=== PATIENT | female | born 1960 | race Caucasian/White ===

== ENCOUNTER 2016-11-13 16:40 | Inpatient (IN) | payer OTHER ==
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
--- NOTE | ~2016-11-13 | DS ---
Discharge Summary [facility] [address] [place]. [address] NAME: DWAYNE ALTAMIRANO : 60 STATUS : DIS IN PAT#: [id number] AGE: 56 ADM/REG DATE : 11/13/16 MR#: [id number] REPORT SERV DATE: 11/17/16 DICTATED BY: BHARAT GARRETT DATE: 11/16/16 REPORT STATUS : Draft TRANSCRIBED BY: MODL DATE: 11/16/16 ADMISSION DATE: 11/13/2016 DISCHARGE DATE: 11/16/2016 DISCHARGE DIAGNOSES: 1. Acute encephalopathy, metabolic, with some ataxia that has resolved. 2. Anxiety, depression, and post-traumatic stress disorder. 3. Positive withdrawal from benzodiazepines and opiates. 4. History of chronic pain syndrome. 5. History of pulmonary embolus and deep venous thrombosis, on chronic anticoagulation with Xarelto. 6. Tobacco abuse. 7. Dental caries. 8. Obstructive/sleep apnea but not wearing CPAP. DISCHARGE MEDICATIONS: As follows: Aspirin 81 mg daily, Mobic 15 mg daily p.r.n. for pain, Restasis ophthalmic drops twice a day to both eyes, vitamin D 50,000 units three times a week, Flonase nasal spray twice a day, folic acid 1 mg daily, gabapentin 800 mg three times a day, Imdur 30 mg daily, Synthroid 50 mcg daily, Thea 180 mg daily, magnesium oxide 400 mg three times a day, MS Contin 15 mg p.o. twice a day, morphine immediate release 15 mg daily p.r.n. for breakthrough pain, prescriptions were written for these. Metoprolol 25 mg twice a day, Nystatin powder topically twice a day, Protonix 40 mg twice a day, Pravachol 40 mg daily, nicotine patch 14 mg daily, Xarelto 20 mg daily, vitamin B12 1000 mcg every seven days, Spiriva Respimat two puffs inhaled daily, Symbicort 160/4.5 two puffs inhaled twice a day, ProAir inhaler every four hours p.r.n. for shortness of breath, nitroglycerin p.r.n. for chest pain, MiraLAX one packet daily p.r.n., Zofran 4 mg every six hours p.r.n. for nausea and vomiting, doxepin 50 mg at bedtime, Glucophage 500 mg twice a day, Phenergan 25 mg every six hours p.r.n. for nausea, Colace 200 mg every eight hours p.r.n. for constipation, and Klonopin 1 mg twice a day p.r.n. for anxiety. HISTORY OF PRESENT ILLNESS: This is an unfortunate 56-year-old white female who presented with altered mental status and confusion. Please see initial H and P of Dr. Red Lloyd as the patient was admitted to the Hospitalist Service for further evaluation and treatment. CONSULTANTS DURING THIS ADMISSION: 1. Neurology, Nikky Zaragoza, nurse practitioner. 2. Ashish Leach MD. 3. Psychiatry, Malik Valdes M.D. PROCEDURES AND IMAGING DURING THIS ADMISSION: Included an initial CT of the brain that showed no evidence of acute intracranial pathology. An MRI of the brain that showed some very mild deep white matter chronic microvascular ischemic changes but no acute CVA or other intracranial pathology and unremarkable intracranial MRA as well of the head and also unremarkable MRA of the carotid arteries. No significant plaque or stenosis. An echocardiogram showing an ejection fraction of 60%, some mild left ventricular diastolic dysfunction, but otherwise, no significant valvular dysfunction was noted. Discharge Summary [facility] [address] [place]. [address] NAME: DWAYNE ALTAMIRANO : 60 STATUS : DIS IN PAT#: [id number] AGE: 56 ADM/REG DATE : 11/13/16 MR#: [id number] REPORT SERV DATE: 11/17/16 DICTATED BY: BHARAT GARRETT DATE: 11/16/16 REPORT STATUS : Draft TRANSCRIBED BY: JUAN DATE: 11/16/16 HOSPITAL COURSE: I began seeing the patient on 11/14/2016 where she was very drowsy but was becoming more alert and able to answer some questions but was extremely poor historian and was still somewhat dysarthric, and in discussion with Neurology, it was determined to obtain the above-described MRIs, echocardiogram, and PT and OT and speech evaluation as there was some concern for acute stroke. However, as described above, she did not have an acute stroke. Her mental status began to improve slowly each day. As more information was able to be obtained from her family and from her, it became clear that she had been somewhat inconsistent with medication usage and was suffering symptoms of withdrawal from likely benzodiazepines and also probable opiates. She became quite tremorous, and once the patient was given benzodiazepines, these withdrawal symptoms and tremors activity began to resolve itself. She was also given nicotine patch for her history of tobacco use. Mental status did resolve to baseline according to family members, and it was felt that her delirium and encephalopathy were primarily medication-related. After a lengthy discussion with the patient, I have counseled her on the need for continued weaning of her opiates and benzodiazepines as she was on tremendous amounts of both of these medicines, and she will also need prompt followup with her primary care within a week and needs to establish with an outpatient psychiatrist also. She was able to be mobilized with physical therapy. They initially recommended long term facility at discharge, but this was unable to be accomplished via the patient's current insurance. She will have home health, however, with nursing and physical therapy through [facility] at discharge. So, the patient was felt safe for discharge home on 11/16/2016 with the above medicines and followup plan, and the patient was in agreement with this plan going forward. Questions were answered at bedside. Please note, greater than 30 minutes were spent on this discharge for medication teaching, followup planning, and further disposition. MICHAEL/MODL Bharat Garrett NP / [id number] CC: Fabby Alcaraz M.D.
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
--- NOTE | ~2016-11-13 | HP ---
History And Physical [place] [id number] [place]. [address] NAME: DWAYNE NAJERA : 60 STATUS : ADM Tiffany PAT#: [id number] AGE: 56 ADM/REG DATE : 11/13/16 MR#: [id number] REPORT SERV DATE: 11/14/16 DICTATED BY: NO MARSHALL DATE: 11/13/16 REPORT STATUS : Draft TRANSCRIBED BY: MODAida DATE: 11/13/16 DATE OF ADMISSION: 11/13/2016 POINT OF ENTRY: [facility] Emergency Department. CHIEF COMPLAINT: Altered mental status and confusion x1 week. HISTORY OF PRESENT ILLNESS: Ms. Najera is a 56-year-old female with a history of non-insulin dependent diabetes mellitus type 2, hypothyroidism, coronary artery disease, chronic pain on multiple chronic narcotics and sedating medications as well as anxiety and depression, who presents to the emergency department today with a one-week history of disorientation and confusion and altered mental status. History is obtained from the patient's son who is at bedside as the patient is altered and unable to provide any history. Son states that for the past week the patient has been very disoriented and confused. She has had some slurred speech. She has been acting inappropriately sometimes responding and speaking inappropriately or not making sense. He also notes that she has not slept for the past few days. She has been up in her chair in the living room wide awake. He does feel as if she has been responding to external visual and auditory stimuli. She is also weak and having trouble walking which she describes mainly with troubles with equilibrium and being unsteady on her feet. She is on multiple sedating medications and narcotics which she is responsive for managing herself. She was seen at [facility] Emergency Department for similar complaints yesterday, of urinary tract infection but no formal neurologic evaluation was undertaken. Initial evaluation in the emergency department notable for a urine drug screen positive for opiates. Remainder of her labs otherwise unremarkable. Urinalysis was negative for UTI. CT scan of the brain was unremarkable. Ammonia level was negative. The patient was subsequently admitted to the Hospitalist Service for further evaluation and management of concern for possible TIA versus stroke. REVIEW OF SYSTEMS: Comprehensive review of systems otherwise negative unless listed in history of present illness. PREVIOUS MEDICAL HISTORY: 1. History of PE, on Coumadin. 2. Wtk-nyhgkiv-gwnsvdlan diabetes mellitus type 2. 3. Hypothyroidism. 4. Coronary artery disease with prior PCI. 5. Chronic pain on multiple chronic narcotics and sedating medications. 6. Hypertension. 7. Hyperlipidemia. 8. Anxiety. 9. Depression. History And Physical [address] [address] NAME: DWAYNE NAJERA : 60 STATUS : ADM Tiffany PAT#: [id number] AGE: 56 ADM/REG DATE : 11/13/16 MR#: [id number] REPORT SERV DATE: 11/14/16 DICTATED BY: NO MARSHALL DATE: 11/13/16 REPORT STATUS : Draft TRANSCRIBED BY: JUAN DATE: 11/13/16 10.Obstructive sleep apnea. 11.Peripheral neuropathy. 12.Asthma or COPD. 13.Morbid obesity. SURGICAL HISTORY: 1. PCI. 2. Cholecystectomy. 3. Uterine ablation. ALLERGIES: 1. PENICILLIN. 2. SULFA. 3. CODEINE. 4. HYDROCODONE. 5. OXYCODONE. 6. ACETAMINOPHEN. 7. ERYTHROMYCIN. 8. AUGMENTIN. 9. CIPROFLOXACIN. 10.BIAXIN. 11.LEVAQUIN. HOME MEDICATIONS: 1. Albuterol one puff inhalation q.4 hours p.r.n. 2. Aspirin 81 mg daily. 3. Symbicort two puff inhalation b.i.d. 4. Ceftin 500 mg b.i.d. 5. Vitamin B12 of 1000 mcg weekly. 6. Cyclosporine eyedrops one drop b.i.d. 7. Topicort cream. 8. Sinequan 50 mg [place] [address] units 3 times weekly. 10.Thea 180 mg daily. 11.Flonase one spray nasal b.i.d. 12.Advair Diskus one puff inhalation b.i.d. 13.Folic acid 1 mg daily. 14.Neurontin 800 mg t.i.d. 15.Imdur 30 mg daily. 16.Levothyroxine 50 mcg daily. 17.Ativan 2 mg t.i.d. p.r.n. 18.Magnesium oxide 400 mg t.i.d. 19.Metformin 5 mg b.i.d. 20.Lopressor 25 mg b.i.d. 21.MS Contin 30 mg b.i.d. p.r.n. 22.Morphine immediate release 15 mg b.i.d. p.r.n. 23.Nitroglycerin 0.5 inch topical p.r.n. History And Physical [address] [address] NAME: DWAYNE NAJERA : 60 STATUS : ADM Tiffany PAT#: [id number] AGE: 56 ADM/REG DATE : 11/13/16 MR#: [id number] REPORT SERV DATE: 11/14/16 DICTATED BY: NO MARSHALL DATE: 11/13/16 REPORT STATUS : Draft TRANSCRIBED BY: JUAN DATE: 11/13/16 24.Nystatin topical cream b.i.d. 25.Zofran 4 mg q.6 hours. 26.Protonix 40 mg b.i.d. 27.MiraLAX one packet daily. 28.Pravastatin 40 mg at bedtime. 29.Spiriva two puffs inhalation daily. 30.Blood thinner, unknown name, but presumed to be Coumadin. SOCIAL HISTORY: Denies any tobacco, alcohol, or illicits. FAMILY MEDICAL HISTORY: Notable for coronary artery disease, bipolar disease, and schizophrenia as well as cancer. LABS AND IMAGIN. White count is 5.0, hemoglobin is 15.3, hematocrit 43.8, and platelets 207. 2. Sodium is 141, potassium 3.2, chloride 103 carbon dioxide 31, BUN 10, creatinine 0.74, glucose 94, calcium is 8.6, protein 7.2, albumin 3.8, bilirubin is 0.6, ALT is 14, AST 11, alkaline phosphatase is 80. 3. TSH 1.43. 4. Ammonia level is undetectable. 5. BNP is 95. 6. Urinalysis: Specific gravity is 1.024, no evidence of any infection. 7. Urine drug screen is positive for opiates. 8. EKG is a very poor baseline, but otherwise, no evidence of any acute ischemia or infarction. 9. CT scan of brain shows no acute intracranial abnormality. 10.Chest x-ray per my review shows poor inspiration, but otherwise, no acute cardiopulmonary abnormality. PHYSICAL EXAMINATION: VITAL SIGNS: Temperature is 98.7 degrees Fahrenheit, pulse is 62, respirations 18, saturating 98% on room air, and blood pressure 169/94. GENERAL: The patient is awake, alert, in no acute distress. Resting comfortably. She is a morbidly obese, female. Son is at bedside. HEENT: Atraumatic and normocephalic. Moist mucous membranes. Pupils are equal, round, reactive to light and accommodation. Extraocular eye movements are intact. No scleral icterus. NECK: No jugular venous distention. No carotid bruits. CARDIAC: Regular rate and rhythm. No murmurs or gallops. Normal S1, S2. LUNGS: Clear to auscultation bilaterally. No wheezes, rhonchi, or crackles. ABDOMEN: Obese, soft, nontender, nondistended. Good bowel sounds. No rebound, guarding, or rigidity. EXTREMITIES: She has a mild tremor in her bilateral upper extremities but otherwise warm and perfused. No cyanosis, clubbing, or edema. SKIN: Warm and dry. PSYCH: Somewhat anxious and agitated. NEURO: She is alert and oriented to person only. She cannot tell me if she is at a hospital History And Physical [address] [address] NAME: DWAYNE NAJERA : 60 STATUS : ADM Tiffany PAT#: [id number] AGE: 56 ADM/REG DATE : 11/13/16 MR#: [id number] REPORT SERV DATE: 11/14/16 DICTATED BY: NO MARSHALL DATE: 11/13/16 REPORT STATUS : Draft TRANSCRIBED BY: MODL DATE: 11/13/16 but is able to tell me any other orientation questions. She does occasionally answer questions inappropriately, difficult to assess whether or not the patient having receptive and/or expressive aphasia or some kind of hallucinations. She does have some evidence of pressured speech as well as tangential thought. Cranial nerves 2 through 12 are grossly intact. It is difficult to have patient follow all commands well. Strength is intact in bilateral upper and lower extremities. Speech is somewhat garbled as well as possibly some dysarthric. ASSESSMENT: Ms. Najera is a 56-year-old female, presents with a one-week history of reports of disorientation and confusion, concern for possible cerebrovascular accident given concern for dysarthria and aphasia. Other etiologies including medication effect as well as underlying psychiatric disease is also on the differential. PROBLEM LIST: 1. Encephalopathy. 2. Aphasia. 3. Insomnia, agitation, hallucinations concerning for underlying psychiatric disease. 4. Chronic pain on multiple sedating medications and narcotics. 5. Dup-tisyvxp-ftfydcdkd diabetes mellitus type 2. 6. History of PE, on Coumadin. PLAN: 1. Encephalopathy. ER physician was concerned for possible stroke given what he felt to be as aphasia and dysarthria; however, after having obtained additional history from the patient's son, I am more concerned about possible underlying psychiatric disease such as acute psychosis or acute manic episode especially in light of the patient's insomnia, pressured speech, and tangential thought. We will check an MRI/MRA to rule out stroke. Consult Neurology for assistance. Hold all of the patient's sedating medications. Checking thyroid function studies, ammonia level, B12. We will also consult Psychiatry for assistance in determining true etiology of the patient's underlying encephalopathy. 2. History of PE, on Coumadin. INR was not checked in the ER. We will check an INR. Coumadin to be managed by Pharmacy. 3. Mbl-olznqui-yruaupjmv diabetes mellitus type 2. Holding patient's metformin. Place the patient on a level 2 sliding scale. 4. Chronic pain on multiple sedating medications and chronic narcotics. Holding all sedating medications given the patient's encephalopathy. 5. History of urinary tract infection. There is no evidence of a UTI here, but we will continue the patient's outpatient antibiotics as started at [facility]. 6. DVT prophylaxis. The patient is on therapeutic anticoagulation. CODE STATUS: The patient wishes to be full code. BRANDYN/JUAN History And Physical [address] [address] NAME: DWAYNE NAJERA : 60 STATUS : ADM Tiffany PAT#: [id number] AGE: 56 ADM/REG DATE : 11/13/16 MR#: [id number] REPORT SERV DATE: 11/14/16 DICTATED BY: NO MARSHALL DATE: 11/13/16 REPORT STATUS : Draft TRANSCRIBED BY: JUAN DATE: 11/13/16 No Marshall MD / [id number] CC: Joao Leone Jr, MD Rebecca Keller, Dr.
[2016-11-13 16:22] LABS: BASOPHILS 0.6 %; BASOPHILS ABSOLUTE 0.03 10/3/uL (0.0-0.16); EOSINOPHILS 0.2 %; EOSINOPHILS ABSOLUTE 0.01 10/3/uL (0.0-0.53); HEMATOCRIT 43.8 % (36.0-48.0); HEMOGLOBIN 15.3 g/dL (12.0-16.0); IMMATURE GRANULOCYTES 0.2 %; IMMATURE GRANULOCYTES ABSOLUTE 0.01 10/3/uL (0.0-0.11); LYMPHOCYTES 34.3 %; LYMPHOCYTES ABSOLUTE 1.72 10/3/uL (0.67-4.30); MEAN CORPUS HGB CONC 34.9 g/dL (32.0-36.0); MEAN CORPUSCULAR HEMOGLOB 31.7 pg (26.0-34.0); MEAN CORPUSCULAR VOLUME 90.7 fL (80-100); MEAN PLATELET VOLUME 10.4 fL (9.2-13.0); MONOCYTES 11.8 %; MONOCYTES ABSOLUTE 0.59 10/3/uL (0.21-1.20); NEUTROPHILS 52.9 %; NEUTROPHILS ABSOLUTE 2.65 10/3/uL (2.02-8.40); PLATELET COUNT 207 10/3/uL (150-400); RBC DISTRIBUTION WIDTH 13.7 % (12.0-16.0); RED CELL COUNT 4.83 10/6/uL (4.0-5.6)
[2016-11-13 16:23] LABS: ER CBC TAT 0 Hrs 03 MinsNP; MANUAL DIFF NO %
[2016-11-13 16:36] LABS: AMMONIA < 10 UMOL/L (11-32)
[~2016-11-13 16:40] MED LIST: ADVAIR250 INH; ATIVAN2 MG PO; B121000P IM; FOLIC PO; HALF81 PO; IMDUR30 PO; LEVOTHYROXIN50 MCG PO; LOP25 PO; MAGOX4 PO; MIRALAX POWDER1 PKT PO; MSCONTIN PO; MSIMMR15 PO; NITROBID2 % TOP; NYSTATPOW TOP; PRAVACHOL40 MG PO; PROAIR HFA INH; RESTASIS OPH; SPIRIVA RESPIMAT INH; SYMBICORT 160/41 INH INH; TOPICORT CREAM15 GM TOP; ZOFRAN4 PO
[2016-11-13] MEDS ORDERED: PROTONIX PO (16:41)
[2016-11-13] MEDS ORDERED: SINEQUAN 50 MG50 MG PO (16:41)
[2016-11-13] MEDS ORDERED: VITD PO (16:41)
[2016-11-13] MEDS ORDERED: FLONASE NAS (16:42)
[2016-11-13] MEDS ORDERED: ALLEGRA180 PO (16:42)
[2016-11-13] MEDS ORDERED: GLUCPH PO (16:42)
[2016-11-13] MEDS ORDERED: NEUR800 PO (16:43)
[2016-11-13 16:46] LABS: A/G RATIO 1.1 (0.7-1.9); ALBUMIN 3.8 G/DL (3.5-5.0); ALKALINE PHOSPHATASE 80 U/L (45-117); BUN (BLOOD UREA NITROGEN) 10 MG/DL (6-23); CALCIUM, SERUM 8.6 MG/DL (8.5-10.4); CHLORIDE, SERUM 103 MMOL/L (96-112); CO2 (CARBON DIOXIDE) 31 MMOL/L (24-34); CREATININE 0.74 MG/DL (0.55-1.02); GFR AFRICAN AMERICAN 105 ML/MIN (>=60); GFR NON AFRICAN AMERICAN 91 ML/MIN (>=60); GLOBULIN 3.4 G/DL (2.5-4.1); GLUCOSE, SERUM 94 MG/DL (60-99); POTASSIUM, SERUM 3.2 MMOL/L (3.5-5.3); SGOT(AST) 11 U/L (5-40); SGPT(ALT) 14 U/L (5-65); SODIUM, SERUM 141 MMOL/L (135-148); TOTAL BILIRUBIN 0.6 MG/DL (0-1.2); TOTAL PROTEIN 7.2 G/DL (6.0-8.5)
[2016-11-13 16:49] LABS: B NATRIURETIC PEPTIDE (BNP) 94.8 PG/ML (< 100.0)
[2016-11-13 16:49] LABS: ASCORBIC ACID (UR NOT ORDER) NEG (NEG); BILIRUBIN, URINE NEGATIVE (NEG); ER URINALYSIS TAT 0 Hrs 16 Mins; KETONE, URINE NEGATIVE (NEG); LEUKOCYTE ESTERASE(NOT OR NEG (NEG); NITRITE (URINE) NEG (NEG); WBC (NOT ORDERED) (RFLEX) 1 (0-5)
[2016-11-13 16:58] LABS: AMPHETAMINES (NOT ORD) NEG (NEG); BENZODIAZEPINES (NOT ORD) NEG (NEG); CANNABINOIDS (THC) NEG (NEG); COCAINE (NOT ORDERED) NEG (NEG); OPIATES POS (NEG); PHENCYCLIDINE(PCP) NEG (NEG)
[2016-11-13 16:59] LABS: BARBITURATES (NOT ORDERED NEG (NEG); TRICYCLICS NEG (NEG)
[2016-11-13] MEDS ORDERED: XARELTO20 MG PO (17:12)
[2016-11-13] MEDS ORDERED: *UNABLE1 (17:12)
[2016-11-13] MEDS ORDERED: CEFT5 PO (17:15)
[2016-11-13 22:25] LABS: INTERNATIONAL NORMAL RATI 1.2 UNITS (-); PARTIAL THROMBO TIME 25.1 SEC (22.5-37.2)
[2016-11-14 01:43] LABS: CPK 263 U/L (0-200); FREE T4 1.58 NG/DL (0.76-1.46)
[2016-11-14 01:44] LABS: CK-MB 4.9 NG/ML; FOLATE 19.3 NG/ML (>5.2)
[2016-11-14 05:33] LABS: CHOL/HDL RATIO(NOT ORDER) 3.6 (0-5); CHOLESTEROL 151 MG/DL (< 200); HDL CHOLESTEROL 42 MG/DL (> 49); LDL CHOLESTEROL 88 MG/DL (< 130); NON-HDL CHOLESTEROL 109 MG/DL (< 160); TRIGLYCERIDE 108 MG/DL (< 150)
[2016-11-14 08:56] LABS: CK-MB 8.4 NG/ML
[2016-11-14 08:58] LABS: CKMB INDEX (NOT ORD) 1.6; TROPONIN I 0.15 NG/ML (<0.05)
[2016-11-14 16:43] LABS: CK-MB 5.2 NG/ML
[2016-11-14 16:49] LABS: CKMB INDEX (NOT ORD) 1.5; TROPONIN I 0.07 NG/ML (<0.05)
[2016-11-15 04:06] LABS: BASOPHILS 0.1 %; BASOPHILS ABSOLUTE 0.01 10/3/uL (0.0-0.16); EOSINOPHILS 0.5 %; EOSINOPHILS ABSOLUTE 0.04 10/3/uL (0.0-0.53); HEMATOCRIT 41.3 % (36.0-48.0); IMMATURE GRANULOCYTES 0.1 %; IMMATURE GRANULOCYTES ABSOLUTE 0.01 10/3/uL (0.0-0.11); LYMPHOCYTES 33.9 %; LYMPHOCYTES ABSOLUTE 2.49 10/3/uL (0.67-4.30); MEAN CORPUS HGB CONC 33.9 g/dL (32.0-36.0); MEAN CORPUSCULAR HEMOGLOB 31.1 pg (26.0-34.0); MEAN CORPUSCULAR VOLUME 91.8 fL (80-100); MEAN PLATELET VOLUME 10.5 fL (9.2-13.0); MONOCYTES 6.5 %; MONOCYTES ABSOLUTE 0.48 10/3/uL (0.21-1.20); NEUTROPHILS 58.9 %; NEUTROPHILS ABSOLUTE 4.31 10/3/uL (2.02-8.40); PLATELET COUNT 194 10/3/uL (150-400); RBC DISTRIBUTION WIDTH 13.9 % (12.0-16.0)
[2016-11-15 04:07] LABS: MANUAL DIFF NO %; WHITE BLOOD CELLS 7.3 10/3/uL (4.5-10.5)
[2016-11-15 04:12] LABS: INTERNATIONAL NORMAL RATI 1.2 UNITS (-)
[2016-11-15 04:22] LABS: A/G RATIO 1.1 (0.7-1.9); ALBUMIN 3.2 G/DL (3.5-5.0); BUN (BLOOD UREA NITROGEN) 9 MG/DL (6-23); CALCIUM, SERUM 8.5 MG/DL (8.5-10.4); CHLORIDE, SERUM 107 MMOL/L (96-112); CO2 (CARBON DIOXIDE) 27 MMOL/L (24-34); CREATININE 0.76 MG/DL (0.55-1.02); GFR AFRICAN AMERICAN 102 ML/MIN (>=60); GFR NON AFRICAN AMERICAN 88 ML/MIN (>=60); GLOBULIN 2.9 G/DL (2.5-4.1); PHOSPHORUS, SERUM 3.2 MG/DL (2.5-4.5); POTASSIUM, SERUM 3.1 MMOL/L (3.5-5.3); SGOT(AST) 17 U/L (5-40); SGPT(ALT) 16 U/L (5-65); SODIUM, SERUM 143 MMOL/L (135-148); TOTAL BILIRUBIN 0.6 MG/DL (0-1.2); TOTAL PROTEIN 6.1 G/DL (6.0-8.5)
[2016-11-15 04:23] LABS: ALKALINE PHOSPHATASE 68 U/L (45-117); GLUCOSE, SERUM 113 MG/DL (60-99)
[2016-11-15] MEDS ORDERED: PR25 PO (12:06)
[2016-11-15] MEDS ORDERED: AMB10 PO (12:06)
[2016-11-15] MEDS ORDERED: HUMALOG SC (12:07)
[2016-11-15] MEDS ORDERED: MOBIC15 MG PO (12:07)
[2016-11-15] MEDS ORDERED: DSS PO (12:07)
[2016-11-16 05:27] LABS: INTERNATIONAL NORMAL RATI 2.4 UNITS (-); PROTIME (NOT ORD) 25.8 SEC (12.0-14.5)
[2016-11-16] MEDS ORDERED: KLONO1 PO (17:40)
[2016-11-16] MEDS ORDERED: HABIT14 TOP (18:40)
== END 2016-11-16 19:16 | disposition home or self-care (01) | DRG 896 ==
LOC: ER 16:40 → CDU1 20:12 → CDU2 20:36
PROVIDERS: Emergency Medicine; Internal Medicine; Nurse Practitioner Family
DX: F13.231 Sedative, hypnotic or anxiolytic dependence with withdrawal delirium (principal); G92 Toxic encephalopathy; F11.23 Opioid dependence with withdrawal; E11.42 Type 2 diabetes mellitus with diabetic polyneuropathy; Z68.41 Body mass index [BMI] 40.0-44.9, adult; Z91.138 Patient's unintentional underdosing of medication regimen for other reason; T40.0X Poisoning by, adverse effect of and underdosing of opium; T42.4X6A Underdosing of benzodiazepines, initial encounter; E03.9 Hypothyroidism, unspecified; I25.10 Atherosclerotic heart disease of native coronary artery without angina pectoris; G89.29 Other chronic pain; F41.9 Anxiety disorder, unspecified; F32.9 Major depressive disorder, single episode, unspecified; E66.01 Morbid (severe) obesity due to excess calories; F39 Unspecified mood [affective] disorder; Z86.711 Personal history of pulmonary embolism; Z79.01 Long term (current) use of anticoagulants; Z88.0 Allergy status to penicillin; Z88.2 Allergy status to sulfonamides; Z88.5 Allergy status to narcotic agent; Z88.1 Allergy status to other antibiotic agents; Z90.49 Acquired absence of other specified parts of digestive tract; Z81.8 Family history of other mental and behavioral disorders; Z79.84 Long term (current) use of oral hypoglycemic drugs; Z87.440 Personal history of urinary (tract) infections
CPT/HCPCS: 70450; 70544; 70548; 70551; 71010; 80053; 80061; 80305; 81001; 82140; 82550; 82553; 82607; 82746; 82962; 83036; 83735; 83880; 84100; 84132; 84439; 84443; 84484; 85025; 85610; 85730; 92523-GN; 92610-GN; 93005; 94640; 97116-GP; 97163-GP; 97166-GO; 99285; A9270-GY; A9577; C8929; G8978-CL-GP; G8979-CK-GP; J0360; J2405; J3486; Q9957